=== PATIENT | female | born 1960 | race Two or more races ===

== ENCOUNTER 2023-10-26 14:16 | Outpatient (REF) | payer MEDICARE, MEDICAID, SELFPAY ==
--- NOTE | ~2023-10-26 | XR_ITS ---
EXAMINATION: XR CHEST CLINICAL INFORMATION: Dyspnea. COMPARISON: None available. TECHNIQUE: Frontal and lateral views of the chest were obtained. FINDINGS: The heart, great vessels, pulmonary vasculature and mediastinum are normal. Lung volumes are diminished, with elevated bilateral hemidiaphragms, left greater than right. There is ingested gas within the stomach. No infiltrate, effusion or pneumothorax is seen. There is no acute osseous abnormality. XR/XR chest 2V IMPRESSION: 1. There are diminished lung volumes. 2. No focal infiltrate or congestive heart failure is seen. Electronically signed by: Asim Escalante MD 11/22/2023 02:02 PM EDT
[2023-10-26 15:32] LABS: MANUAL DIFF FLAG NO
[2023-10-26 15:38] LABS: Basophils Absolute Auto 0.1 X10*3/uL (0.0-0.2); Basophils Percent Auto 0.5 % (0-2); Eosinophils Absolute Auto 0.1 X10*3/uL (0.0-0.4); Eosinophils Percent Auto 1.3 % (0-4); Hematocrit 39.9 % (37.0-47.0); Hemoglobin 12.4 g/dl (12.0-16.0); Imm Gran Abs Auto 0.04 X10*3/uL (0.00-0.03); Imm Gran Pct Auto 0.4 % (0.0-0.4); Lymphocytes Absolute Auto 3.5 X10*3/uL (1.2-4.9); Lymphocytes Percent Auto 31.7 % (20-40); Mean Corpuscular HGB Conc 31.1 g/dl (31.0-35.0); Mean Corpuscular Hemoglobin 24.6 pg (27.0-33.0); Mean Platelet Volume 9.7 fL (9.4-12.3); Monocytes Absolute Auto 0.8 X10*3/uL (0.1-1.2); Monocytes Percent Auto 7.4 % (2-11); Neutrophils Absolute Auto 6.5 x10*3/uL (2.0-8.3); Neutrophils Percent Auto 58.7 % (45-73); Platelet Count 302 X10*3/uL (160-400); Red Blood Count 5.05 X10*6/uL (4.20-5.50); Red Cell Distribution Width 15.9 % (11.0-16.0)
[2023-10-26 15:48] LABS: VBG pCO2 50 mmHg; VBG pH 7.44 (7.32-7.43)
[2023-10-26 15:49] LABS: VBG Base Excess 9.3 mmol/L; VBG HCO3 35 mmol/L (22-26); VBG pO2 77 mmHg
[2023-10-26 15:50] LABS: Venous Blood Gas Refer to POC result
[2023-10-26 15:58] LABS: Anion Gap 12 (12-20); Blood Urea Nitrogen 12 mg/dL (9-16); Carbon Dioxide 30 mmol/L (22-29); Chloride 102 mmol/L (96-108); Estimated Glomerular Filt Rate > 60; Glucose Random 163 mg/dL (60-115); Potassium 3.8 mmol/L (3.3-5.1); Sodium 140 mmol/L (135-145)
[2023-10-26 16:26] LABS: Erythrocyte Sedimentation Rate 8 MM/HR (0-20)
[2023-10-29 15:28] LABS: Anti Nuclear Antibody Screen NEGATIVE (NEGATIVE)
[2023-10-30 15:33] LABS: Cyclic Citrullinated Peptide <16 UNITS
== END 2023-10-26 14:17 | disposition home or self-care (01) ==
LOC: HO.LAB 14:16
PROVIDERS: PCP Family Medicine; Visit Provider Hospitalist
DX: R06.02 Shortness of breath (principal); G60.0 Hereditary motor and sensory neuropathy; J98.4 Other disorders of lung; G47.33 Obstructive sleep apnea (adult) (pediatric)
CPT/HCPCS: 36415; 71046; 80048; 82803; 85025; 85652; 86038; 86200; 99202

== ENCOUNTER 2023-10-26 14:16 | Outpatient (AMB) | payer MEDICARE, MEDICAID, SELFPAY ==
[2023-10-26 14:25] VITALS: PULSE 81; O2SAT 95; BMI 40.4
--- NOTE | 2023-10-26 14:25 | A.OFFVIS_ITS ---
Vital Signs 10/26/23 14:25 Height 4 ft 11 in Weight 200 lb BMI 40.4 Pulse 81 Pulse Source Pulse Oximeter Pulse Oximetry (%) 95 Oxygen Delivery Method Room Air Intake Visit Reasons: Sleep apnea Aircraft Riveter Required: No Allergies sulfamethoxazole [From Bactrim] Adverse Reaction (Severe, Verified 10/26/23 14:27) Hives trimethoprim [From Bactrim] Adverse Reaction (Severe, Verified 10/26/23 14:27) Hives HPI Comments Details: The patient is here for pulmonary evaluation. The patient is a 63 year woman with a known history of charcot angie tooth muscular dystrophy in addition to obstructive sleep apnea. The patient had been developing significant daytime drowsiness. She had undergoing a sleep study demonstrating significant sleep apnea back in 2006. she has been placed on BiPAP with O2. The BiPAP therapy has been affecting beneficial for many years. The patient however has been describing worsening shortness of breath while awake. her shortness of breath is worse when she is laying flat. Currently she is wheelchair-bound due to her significant muscular dystrophy. She feels that the last couple years she has noticed further weakness of her upper and lower extremities. Again, she does depend on a wheelchair and now even to eat in for other activities of daily living she needs help of her . She had been evaluated by Neurology but she no longer is followed by Neurology this time. It is important for her to be evaluated and also should be evaluated by occupational therapy as well to help her with her limitations. In the meantime the patient also has worsening respiratory symptoms. Will go ahead and check her pulmonary function studies in addition to her venous blood gas. My suspicion is that with her progressive neuromuscular disease she may be developing further restrictive lung disease and therefore respiratory failure. If the patient does have elevations in her CO2 and significant decrease in therefore vital capacity which I suspect she will be a good candidate ventilator. [facility] Medical History (Updated 10/28/23 @ 21:25 by Go Fournier MD) JAKI treated with BiPAP Chronic restrictive lung disease Charcot Angie Tooth muscular atrophy Dyspnea Social History (Updated 10/26/23 @ 14:31 by SHABNAM Dominguez) Patient Tobacco Use Status: Never used Tobacco Review of Systems Const Reports daytime sleepiness and Reports weakness Eyes Reports no additional complaints ENT Reports nasal congestion Card Denies chest pain, Reports dyspnea and Reports dyspnea on exertion Resp Reports cough, Reports dyspnea, Reports dyspnea on exertion and Denies wheezing GI Reports no additional complaints Musc Reports abnormal gait and Reports muscle weakness Skin/Breast Denies rash Neuro Reports Neuro-related abnormal movements, Reports abnormal gait and Reports weakness Darion/Lymph Reports no additional complaints Aller/Immun Denies wheezing Physical Exam Vital Signs: Last Vital Signs Pulse 81 10/26/23 14:25 Pulse Ox 95 10/26/23 14:25 Oxygen Delivery Method Room Air 10/26/23 14:25 BMI result Body Mass Index 40.4 Const General: comfortable Limitations: wheelchair HEENT Head: Yes normocephalic Neck Neck: Yes supple Chest Chest palpation & inspection: normal inspection of the chest Resp Effort & Inspection: normal respiratory effort Auscultation: no rales, no rhonchi, no wheezes and diminished lung sounds Cardio Heart sounds: S1 normal heart sound present and S2 normal heart sound present GI Palpation (GI): Soft to palpation Skin General skin exam: no rashes or lesions noted Extrem General: No clubbing and No cyanosis Results Reviewed Results Reviewed: personally reviewd sleep study Assessment & Plan Assessment & Plan (1) Dyspnea: Code(s): R06.00 - Dyspnea, unspecified Category: Medical Qualifiers: Dyspnea type: shortness of breath Qualified Code(s): R06.02 - Shortness of breath (2) Charcot Angie Tooth muscular atrophy: Code(s): 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 Category: Medical (3) Chronic restrictive lung disease: Code(s): J98.4 - Other disorders of lung Category: Medical (4) JAKI treated with BiPAP: Code(s): G47.33 - Obstructive sleep apnea (adult) (pediatric) Category: Medical Plan Bloodwork/blood gas continue BIPAP with O2 PFTs CXR continue NIV F/U 6 weeks Orders: Orders Basic Metabolic Panel 10/26/23 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, R06.00 - Dyspnea, unspecified Erythrocyte Sedimentation Rate 10/26/23 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, R06.00 - Dyspnea, unspecified Cyclic Citrullinated Peptide 10/26/23 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, R06.00 - Dyspnea, unspecified XR chest 2V 10/26/23 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, R06.00 - Dyspnea, unspecified PFT pulmonary function test 10/26/23 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, R06.00 - Dyspnea, unspecified Venous Blood Gas 10/26/23 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, R06.00 - Dyspnea, unspecified Complete Blood Count Auto Diff 10/26/23 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, R06.00 - Dyspnea, unspecified RANCHO Reflex Titer and Pattern 10/26/23 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, R06.00 - Dyspnea, unspecified Referrals Neurology Referral 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
== END 2023-10-26 14:55 | disposition home or self-care (01) ==
PROVIDERS: PCP Family Medicine; Visit Provider Hospitalist
DX: G47.33 Obstructive sleep apnea (adult) (pediatric) (principal); J98.4 Other disorders of lung; R06.02 Shortness of breath; G60.0 Hereditary motor and sensory neuropathy
CPT/HCPCS: 99205

== ENCOUNTER 2023-11-30 09:15 | Outpatient (AMB) | payer MEDICARE, MEDICAID, SELFPAY ==
--- NOTE | 2023-11-30 09:18 | MHC.OFFVIS ---
Vital Signs 11/30/23 09:20 Height 4 ft 11 in Weight 190 lb BMI 38.4 BP 124/70 Blood Pressure Location Rt brachial Position Sitting Pulse 78 Pulse Source Pulse Oximeter Pulse Oximetry (%) 96 Oxygen Delivery Method Room Air Intake Visit Reasons: Sleep apnea Faculty Physician Required: No Allergies sulfamethoxazole [From Bactrim] Adverse Reaction (Severe, Verified 11/30/23 09:23) Hives trimethoprim [From Bactrim] Adverse Reaction (Severe, Verified 11/30/23 09:23) Hives HPI Comments Details: The patient is a 63 year woman with a known history of charcot angie tooth muscular dystrophy in addition to obstructive sleep apnea. The patient had been developing significant daytime drowsiness. She had undergoing a sleep study demonstrating significant sleep apnea back in 2006. she has been placed on BiPAP with O2. The BiPAP therapy has been affecting beneficial for many years. The patient however has been describing worsening shortness of breath while awake. her shortness of breath is worse when she is laying flat. Currently she is wheelchair-bound due to her significant muscular dystrophy. She feels that the last couple years she has noticed further weakness of her upper and lower extremities. Again, she does depend on a wheelchair and now even to eat in for other activities of daily living she needs help of her . She had been evaluated by Neurology but she no longer is followed by Neurology this time. It is important for her to be evaluated and also should be evaluated by occupational therapy as well to help her with her limitations. In the meantime the patient also has worsening respiratory symptoms. Will go ahead and check her pulmonary function studies in addition to her venous blood gas. My suspicion is that with her progressive neuromuscular disease she may be developing further restrictive lung disease and therefore respiratory failure. If the patient does have elevations in her CO2 and significant decrease in therefore vital capacity which I suspect she will be a good candidate ventilator. 11/30/2023 the patient is here for a pulmonary follow-up visit. Overall she is doing okay. She does have significant restrictive lung disease due to her Charcot Angie tooth muscular dystrophy. She is currently wheelchair-bound. She has been using the BiPAP at nighttime. We did do a blood gas while on the BiPAP and his CO2 still elevated at 50 mmHg. In addition to that the patient did have pulmonary function studies and had a forced vital capacity of about 30% and has significantly limited inspiratory and expiratory maximum inspiratory pressures. Therefore, the patient does have significant disease with evidence of chronic hypercarbic respiratory failure. At this point will go ahead and switch her BiPAP to a noninvasive ventilator. This will help her with better gas exchange. Could also provide her with a mouthpiece that she can use during the daytime when she has her wheelchair to provide rescue breaths during the day as well. We have been trying to help her getting to a neurologist. The patient had been seen a local neurologist in the past Dr. Plummer, but since he tired. Hopefully we can set her up with [facility] neurology. The patient had been evaluated in [place] as well. Although transportation is an issue. The patient is still having some difficulty sleeping. She has significant pain at nighttime. She will try small dose of gabapentin. She also takes Cymbalta we have to make sure to give her small dose. She can titrate from 100 mg 200 mg.. [facility] Medical History (Updated 12/02/23 @ 21:26 by Go Fournier MD) Chronic hypercapnic respiratory failure JAKI treated with BiPAP Chronic restrictive lung disease Charcot Angie Tooth muscular atrophy Dyspnea Social History (Updated 10/26/23 @ 14:31 by SHABNAM Dominguez) Patient Tobacco Use Status: Never used Tobacco Review of Systems Const Reports daytime sleepiness and Reports weakness Eyes Reports no additional complaints ENT Reports nasal congestion Card Denies chest pain, Reports dyspnea and Reports dyspnea on exertion Resp Reports cough, Reports dyspnea, Reports dyspnea on exertion and Denies wheezing GI Reports no additional complaints Musc Reports abnormal gait and Reports muscle weakness Skin/Breast Denies rash Neuro Reports Neuro-related abnormal movements, Reports abnormal gait and Reports weakness Darion/Lymph Reports no additional complaints Aller/Immun Denies wheezing Physical Exam Vital Signs: Last Vital Signs Pulse 78 11/30/23 09:20 BP 124/70 11/30/23 09:20 Pulse Ox 96 11/30/23 09:20 Oxygen Delivery Method Room Air 11/30/23 09:20 BMI result Body Mass Index 38.4 Const General: comfortable Limitations: wheelchair HEENT Head: Yes normocephalic Neck Neck: Yes supple Chest Chest palpation & inspection: normal inspection of the chest Resp Effort & Inspection: normal respiratory effort Auscultation: no rales, no rhonchi, no wheezes and diminished lung sounds Cardio Heart sounds: S1 normal heart sound present and S2 normal heart sound present GI Palpation (GI): Soft to palpation Skin General skin exam: no rashes or lesions noted Extrem General: No clubbing and No cyanosis Assessment & Plan Assessment & Plan (1) Dyspnea: Code(s): R06.00 - Dyspnea, unspecified Category: Medical Qualifiers: Dyspnea type: shortness of breath Qualified Code(s): R06.02 - Shortness of breath (2) Charcot Angie Tooth muscular atrophy: Code(s): 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 failed BIPAP with O2, elevated PCO2 and FVC 30% EKG start PPI start gabapentin at night [facility] neurology F/U 6 weeks Orders: Orders ECG 12 lead EKG 11/30/23 J44.9 - Chronic obstructive pulmonary disease, unspecified Medications: New gabapentin 200 mg (2 x 100 mg) PO BEDTIME 60 caps 4RF 30 days omeprazole 40 mg PO DAILY 30 caps 6RF Coding Level of Care Code Est Pt Level 5 (23980) Complex EM visit Add On G2211 Diagnoses Shortness of breath R06.02 Dyspnea type: shortness of breath Charcot Angie Tooth muscular atrophy G60.0 Chronic restrictive lung disease J98.4 JAKI treated with BiPAP G47.33 Chronic hypercapnic respiratory failure J96.12 Chest pain, unspecified type R07.9 Chest pain type: unspecified Time Spent (min) 30
[2023-11-30 09:20] VITALS: BP 124/70; PULSE 78; O2SAT 96; BMI 38.4
== END 2023-11-30 09:57 | disposition home or self-care (01) ==
PROVIDERS: PCP Family Medicine; Visit Provider Hospitalist
DX: G47.33 Obstructive sleep apnea (adult) (pediatric) (principal); G60.0 Hereditary motor and sensory neuropathy; J98.4 Other disorders of lung; J96.12 Chronic respiratory failure with hypercapnia; R07.9 Chest pain, unspecified
CPT/HCPCS: 99215; G2211

== ENCOUNTER → 2023-11-30 09:15 | Outpatient (REF) | payer MEDICARE, MEDICAID, SELFPAY ==
--- NOTE | 2023-11-30 10:15 | ECG_ITS ---
Test Reason : COPD Blood Pressure : / mmHG Vent. Rate : 077 BPM Atrial Rate : 077 BPM P-R Int : 148 ms QRS Dur : 074 ms QT Int : 364 ms P-R-T Axes : 021 007 036 degrees QTc Int : 411 ms Normal sinus rhythm Cannot rule out Anterior infarct , age undetermined Abnormal ECG No previous ECGs available Referred By: Go Fournier Electronically Signed By:DELMY KENYON
== END ==
LOC: HO.CARD 09:15
PROVIDERS: PCP Family Medicine; Visit Provider Hospitalist
DX: R06.02 Shortness of breath (principal); J44.9 Chronic obstructive pulmonary disease, unspecified
CPT/HCPCS: 93005; 99212

== ENCOUNTER 2024-06-24 12:58 | Outpatient (REF) | payer MEDICARE, MEDICAID, SELFPAY ==
--- NOTE | ~2024-06-24 | XR_ITS ---
EXAMINATION: XR CHEST CLINICAL INFORMATION: R07.9 - Chest pain, unspecified COMPARISON: October 26, 2023. TECHNIQUE: 2 views of the chest were obtained. FINDINGS: Low lung volume. Elevated left hemidiaphragm, chronic. No consolidation, pleural effusion or pneumothorax. Cardiomediastinal silhouette size is normal. Multilevel thoracolumbar spondylosis. Osteopenia versus osteoporosis. Vascular clips right upper quadrant abdomen. Patient's large body habitus. XR/XR chest 2V IMPRESSION: No acute airspace disease. Stable chest. Electronically signed by: Genaro Ingram MD 06/25/2024 09:11 AM EDT
[2024-06-24 13:48] LABS: MANUAL DIFF FLAG NO
[2024-06-24 13:49] LABS: Venous Blood Gas Refer to POC result
[2024-06-24 13:56] LABS: Basophils Absolute Auto 0.1 X10*3/uL (0.0-0.2); Basophils Percent Auto 0.8 % (0-2); Eosinophils Absolute Auto 0.2 X10*3/uL (0.0-0.4); Eosinophils Percent Auto 1.8 % (0-4); Hematocrit 42.1 % (37.0-47.0); Hemoglobin 12.8 g/dl (12.0-16.0); Imm Gran Abs Auto 0.03 X10*3/uL (0.00-0.03); Imm Gran Pct Auto 0.3 % (0.0-0.4); Lymphocytes Absolute Auto 3.2 X10*3/uL (1.2-4.9); Mean Corpuscular HGB Conc 30.4 g/dl (31.0-35.0); Mean Corpuscular Hemoglobin 24.2 pg (27.0-33.0); Mean Corpuscular Volume 79.6 fL (80.0-98.0); Monocytes Absolute Auto 0.9 X10*3/uL (0.1-1.2); Neutrophils Absolute Auto 6.3 x10*3/uL (2.0-8.3); Neutrophils Percent Auto 59.1 % (45-73); Platelet Count 333 X10*3/uL (160-400); Red Blood Count 5.29 X10*6/uL (4.20-5.50); Red Cell Distribution Width 17.3 % (11.0-16.0); White Blood Count 10.7 X10*3/uL (4.8-10.8)
[2024-06-24 14:37] LABS: Alanine Aminotransferase 13 U/L (0-31); Albumin Level 3.9 g/dL (3.5-5.0); Alkaline Phosphatase 108 U/L (39-117); Anion Gap 7 (12-20); Aspartate Amino Transferase 18 U/L (5-31); Bilirubin Direct 0.2 mg/dL (0.0-0.5); Bilirubin Total 0.5 mg/dL (0.0-1.0); Blood Urea Nitrogen 15 mg/dL (9-16); Calcium 9.2 mg/dL (8.4-10.2); Carbon Dioxide 32 mmol/L (22-29); Chloride 106 mmol/L (96-108); Estimated Glomerular Filt Rate > 60; Glucose Random 157 mg/dL (60-115); Potassium 3.9 mmol/L (3.3-5.1); Sodium 141 mmol/L (135-145); Total Protein 7.4 g/dL (6.5-8.0)
[2024-06-24 14:45] LABS: Erythrocyte Sedimentation Rate 10 MM/HR (0-20)
--- OUTSIDE RECORDS SUMMARY | 2024-06-24 16:04 | XMS_ITS | Clinical Summary ---
Author Organization [address] [place] [address] [place] [phone] Phone Care Team Providers Care Transmission Maintenance Supervisor Name Role Phone Fany Roberto MD Primary [...] Active Problems Problem Noted Date Diagnosed Date Cdxwzkc-Yngku-Vooiq disease 09/18/2013 Overview (02/24/2024): Diagnosed at the [...] 2010 PROCEDURE: HISTORICAL CHOLECYSTECTOMY PARTIAL HYSTERECTOMY PROCEDURE: [place] SUPRACERVICAL ABDL HYSTER W/WO RMVL TUBE OVARY TONSILLECTOMY PROCEDURE: HISTORICAL TONSILLECTOMY OTHER SURGICAL HISTORY PROCEDURE: [place] ANESTHESIA OPEN PROCEDURES LOWER 1/3 FEMUR; COMMENT: fractured, gladis in place COLONOSCOPY 06/20/12 PROCEDURE: HISTORICAL COLONOSCOPY; COMMENT: Dr Huang OTHER SURGICAL HISTORY PROCEDURE: CLASS; COMMENT: X 3 Medical History Medical History Date Comments Osteoporosis 09/18/2013 DX:Osteoporosis Slrrnbk-Mapex-Upjlw disease DX:C mgfzdj-Oyqwn-Sxukr disease Family History Medical History Relation Name [...] PM EDT Office Visit Adult Medicine - [place] [address] [place] [phone] Jacob Davis PA [address] [place] [address] 12/23/2024 2:30 PM EDT Office Visit Bariatric Surgery - [place] [address] [phone] Dorie Schneider MD [address] [address] Health Maintenance Due Date Last Done Comments [...] PM EDT Narrative 10/26/2022 2:58 PM EDT [facility] Diagnostic Imaging Department [address] [place] [address] Patient: ??EUSEBIA AGUILAR ?/Age/Sex: 1960 - 62 - F Unit#: ??[id number] ? Location/Status: ??SPDIMAM/REG CLI ? Mnemonic/Ordering Site: ??DIGSC/SPMAM Ordering Physician: ??FANY ROBERTO MD Elena Screening Digital - 10/26/22 477 Report Status:Signed EXAM: [facility] Screening Digital EXAM DATE AND TIME: 10/26/2022 2:43 PM HISTORY: ??Screening. COMPARISON: ??10/24/21, 09/10/17, 10/08/15 TECHNIQUE: Bilateral digital breast tomosynthesis was performed in the CC and MLO projections. Computer aided detection with [employer] concepts 3D 3.1 was employed. TISSUE DENSITY: b. [...] Dic Date/Time: ??10/26/22 1457 Sign date/Time: ??10/26/22 1455 Procedure Note Mar Ramos MD - 05/01/2023 [facility] Diagnostic Imaging Department [address] [place] [address] Patient: LAURENEUSEBIA.O.B./Age/Sex: 1960 - 62 - F Unit#: [id number] [facility] Ordering Physician: FANY ROBERTO MD Elena Screening Digital - 10/26/22 - 1442 Report Status:Signed EXAM: [facility] Screening Digital EXAM DATE AND TIME: 10/26/2022 2:43 PM HISTORY: Screening. COMPARISON: 10/24/21, 09/10/17, 10/08/15 TECHNIQUE: Bilateral digital breast tomosynthesis was performed in the CCand MLO projections. Computer aided detection with [employer]jh direct marketing concepts 3D 3.1was employed. TISSUE DENSITY: b. There [...] Relevant to Health Maintenance Insurance MEDICAID - [place] MEDICARE Care Teams Transmission Maintenance Supervisor Relationship Specialty Start Date End Date Fany Roberto MD [address] [place] [phone] PCP - General Internal Medicine 08/02/21
== END 2024-06-24 12:59 | disposition home or self-care (01) ==
LOC: HO.XRAY 12:58
PROVIDERS: PCP Family Medicine; Visit Provider Hospitalist
DX: R07.9 Chest pain, unspecified (principal); R06.02 Shortness of breath; G60.0 Hereditary motor and sensory neuropathy; G47.33 Obstructive sleep apnea (adult) (pediatric); Z99.89 Dependence on other enabling machines and devices
CPT/HCPCS: 36415; 71046; 80048; 80076; 85025; 85652; 99212

== ENCOUNTER 2024-06-24 12:58 | Outpatient (AMB) | payer MEDICARE, MEDICAID, SELFPAY ==
[2024-06-24 13:01] VITALS: BP 126/70; PULSE 85; O2SAT 99
--- NOTE | 2024-06-24 13:01 | A.OFFVIS_ITS ---
Vital Signs 06/24/24 13:01 Height 4 ft 11 in BMI Reason not done Patient refused/unable BP 126/70 Blood Pressure Location Rt brachial Position Sitting Pulse 85 Pulse Source Pulse Oximeter Pulse Oximetry (%) 99 Oxygen Delivery Method Room Air Intake Visit Reasons: sleep apnea Allergies sulfamethoxazole [From Bactrim] Adverse Reaction (Severe, Verified 06/24/24 13:05) Hives trimethoprim [From Bactrim] Adverse Reaction (Severe, Verified 06/24/24 13:05) Hives HPI Comments Details: The patient is a 64 year woman with a known history of charcot angie tooth muscular dystrophy in addition to obstructive sleep apnea. The patient had been developing significant daytime drowsiness. She had undergoing a sleep study demonstrating significant sleep apnea back in 2006. she has been placed on BiPAP with O2. The BiPAP therapy has been affecting beneficial for many years. The patient however has been describing worsening shortness of breath while awake. her shortness of breath is worse when she is laying flat. Currently she is wheelchair-bound due to her significant muscular dystrophy. She feels that the last couple years she has noticed further weakness of her upper and lower extremities. Again, she does depend on a wheelchair and now even to eat in for other activities of daily living she needs help of her . She had been evaluated by Neurology but she no longer is followed by Neurology this time. It is important for her to be evaluated and also should be evaluated by occupational therapy as well to help her with her limitations. In the meantime the patient also has worsening respiratory symptoms. Will go ahead and check her pulmonary function studies in addition to her venous blood gas. My suspicion is that with her progressive neuromuscular disease she may be developing further restrictive lung disease and therefore respiratory failure. If the patient does have elevations in her CO2 and significant decrease in therefore vital capacity which I suspect she will be a good candidate ventilator. 11/30/2023 the patient is here for a pulmonary follow-up visit. Overall she is doing okay. She does have significant restrictive lung disease due to her Charcot Angie tooth muscular dystrophy. She is currently wheelchair-bound. She has been using the BiPAP at nighttime. We did do a blood gas while on the BiPAP and his CO2 still elevated at 50 mmHg. In addition to that the patient did have pulmonary function studies and had a forced vital capacity of about 30% and has significantly limited inspiratory and expiratory maximum inspiratory pressures. Therefore, the patient does have significant disease with evidence of chronic hypercarbic respiratory failure. At this point will go ahead and switch her BiPAP to a noninvasive ventilator. This will help her with better gas exchange. Could also provide her with a mouthpiece that she can use during the daytime when she has her wheelchair to provide rescue breaths during the day as well. We have been trying to help her getting to a neurologist. The patient had been seen a local neurologist in the past Dr. Plummer, but since he tired. Hopefully we can set her up with [facility] neurology. The patient had been evaluated in [place] as well. Although transportation is an issue. The patient is still having some difficulty sleeping. She has significant pain at nighttime. She will try small dose of gabapentin. She also takes Cymbalta we have to make sure to give her small dose. She can titrate from 100 mg 200 mg. 06/24/2024 the patient is here for a pulmonary follow-up visit. Overall the patient has been doing fair. She has been complaining of some right-sided chest discomfort primarily on the lower part. Does radiate to the front. She already had her gallbladder taken out. She does have a pleuritic component. He is also tender to the touch. She does get vesicles sometimes but no obvious shingles that she is describing. In addition to that she has been using her ventilator. The ventilator has been affecting beneficial. I did downloaded. She has been using it every night. Her AHI is down to 0.4. The patient is trying to get used to the mask she has significant air leakage. She needs to try fullface mask. She did get 1 and she is going to start using more regularly. In addition to that the patient finally got some records from her neurologist. Therefore put a referral again for to see [facility] Neurology. In addition to that she was having some chest discomfort over the fall and she did have an EKG that was abnormal. Therefore will for for her to Cardiology as well to further evaluate those findings. The patient has been complaining of a weak cough. Difficult for her to expectorate. She is also worried about it because she has a hard time clearing any secretions. She did cough in the office and his extremely weak. She is really not able to mount a significant cough. She needs assistance in therefore will go ahead and order a cough assist device for her to be a clear secretions. In this way she can use it as a chest physical therapy on a daily basis and then increase it or increase the frequency when she gets congested. [facility] Medical History (Updated 06/24/24 @ 13:26 by Go Fournier MD) Abnormal EKG Chronic hypercapnic respiratory failure JAKI treated with BiPAP Chronic restrictive lung disease Charcot Angie Tooth muscular atrophy Dyspnea Social History Patient Tobacco Use Status: Never used Tobacco Review of Systems Const Reports daytime sleepiness and Reports weakness Eyes Reports no additional complaints ENT Reports nasal congestion Card Denies chest pain, Reports dyspnea and Reports dyspnea on exertion Resp Reports cough, Reports dyspnea, Reports dyspnea on exertion and Denies wheezing GI Reports no additional complaints Musc Reports abnormal gait and Reports muscle weakness Skin/Breast Denies rash Neuro Reports Neuro-related abnormal movements, Reports abnormal gait and Reports weakness Darion/Lymph Reports no additional complaints Aller/Immun Denies wheezing Physical Exam Vital Signs: Last Vital Signs Pulse 85 06/24/24 13:01 BP 126/70 06/24/24 13:01 Pulse Ox 99 06/24/24 13:01 Oxygen Delivery Method Room Air 06/24/24 13:01 Const General: comfortable Limitations: wheelchair HEENT Head: Yes normocephalic Neck Neck: Yes supple Chest Chest palpation & inspection: tenderness rib Resp Effort & Inspection: normal respiratory effort Auscultation: no rales, no rhonchi, no wheezes and diminished lung sounds Cardio Heart sounds: S1 normal heart sound present and S2 normal heart sound present GI Palpation (GI): Soft to palpation Skin General skin exam: no rashes or lesions noted Extrem General: No clubbing and No cyanosis Assessment & Plan Assessment & Plan (1) Dyspnea: Code(s): R06.00 - Dyspnea, unspecified Category: Medical Qualifiers: Dyspnea type: shortness of breath Qualified Code(s): R06.02 - Shortness of breath (2) Charcot Angie Tooth muscular atrophy: Code(s): 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 Category: Medical (3) Chronic restrictive lung disease: Code(s): J98.4 - Other disorders of lung Category: Medical (4) JAKI treated with BiPAP: Code(s): G47.33 - Obstructive sleep apnea (adult) (pediatric) Category: Medical (5) Chronic hypercapnic respiratory failure: Code(s): J96.12 - Chronic respiratory failure with hypercapnia Category: Medical (6) Chest pain: Code(s): R07.9 - Chest pain, unspecified Category: Medical Qualifiers: Chest pain type: unspecified Qualified Code(s): R07.9 - Chest pain, unspecified (7) Abnormal EKG: Code(s): R94.31 - Abnormal electrocardiogram [ECG] [EKG] Category: Medical Plan non invasive ventilator, astral, with mouth piece. failed BIPAP with O2, elevated PCO2 and FVC 30%. Needs to use FM PPI gabapentin at night [facility] neurology referral Cardiology referra Needs a cough assist device Bloodwork CXR start Baclofen TID F/U 4 months Orders: Orders Venous Blood Gas Today R07.9 - Chest pain, unspecified Liver Panel Today R07.9 - Chest pain, unspecified Erythrocyte Sedimentation Rate Today R07.9 - Chest pain, unspecified XR chest 2V Today R07.9 - Chest pain, unspecified Complete Blood Count Auto Diff Today R07.9 - Chest pain, unspecified Basic Metabolic Panel Today R07.9 - Chest pain, unspecified Referrals Cardiology Referral R94.31 - Abnormal electrocardiogram [ECG] [EKG] Neurology Referral 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
--- OUTSIDE RECORDS SUMMARY | 2024-06-24 15:09 | XMS_ITS ---
Author Organization [facility] Address [address] [address] Care Team Providers Care Vehicle Body Builder Name Role Phone Marco Jones MD, Sara Primary Care Provider REASON FOR VISIT *Acute Condition Medications Medication SIG (Take, Route, Frequency, Duration) Notes Start Date End Date Status Ciprofloxacin HCl 250 MG 1 tablet Orally every 12 hrs for 5 days 04/13/2024 Active Phenazopyridine HCl 200 MG 1 tablet afte r meals Orally Three times a day for 2 days 04/13/2024 Active Social History Sex Assigned At : Social History Observation Description Sex Assigned At Female Encounters Encounter Location Date Provider Diagnosis [facility] [address] [place] [address] 04/13/2024 Sara Jones Plan Of Treatment Medication Medication Name Sig Start Date Stop Date Notes Ciprofloxacin HCl 250 MG 1 tablet Orally every 12 hrs for 5 days 04/13/2024 Phenazopyridine HCl 200 MG 1 tablet afte r meals Orally Three times a day for 2 days 04/13/2024 Progress Notes * BRIANNE AGUILAROB: 1 (64 yo F)Acc No.[id number]:04/13/2024 Patient:?AGUILAROSWALDOEUSEBIA :1960???Age:64 Y???Sex:Female Address:[address] [place] [id number] * Refills? Start Phenazopyridine HCl Tablet, 200 MG, Orally, 6, 1 tablet after meals, Three times a day, 2 days, Refills=0 Start Ciprofloxacin HCl Tablet, 250 MG, Orally, 10 Tablet, 1 tablet, every 12 hrs, 5 days, Refills=0 * true * Date:? Generated for Annie bateman/Ade/Adan on:?06/24/2024 03:09 PM EDT
--- OUTSIDE RECORDS SUMMARY | 2024-06-24 15:09 | XMS_ITS ---
Author Organization [facility] Address [address] [place] [address] Care Team Providers Care Curriculum Counselor Name Role Phone Marco Jones MD, Sara Primary Care Provider [phone] REASON FOR VISIT fasting labs Social History Sex Assigned At : Social History Observation Description Sex Assigned At Female Encounters Encounter Location Date Provider Diagnosis [place] [address] [place] [address] 05/16/2024 Sara Jones Plan Of Treatment No Information Progress Notes * BRIANNE AGUILAROB: (64 yo F)Acc No.[id number]:05/16/2024 Progress Notes Patient:EUSEBIA ALMANZAR Provider:?Sara Manzo MD :1960???Age:64 Y???Sex:Female D ate:05/16/2024 Address:[address] [place], [place] [phone] Structured Data:General cons ent obtained : Written; Date obtained: : 03/18/2024 Subjective: * Chief Complaints: * ???1. Fasting labs. * Medical History:? Objective: * Vitals:? Assessment: Plan: * Treatment: * * Electronic signature of Muna Jones MD, MD on 06/24/2024 at 03:09 PM EDT Sign off status: Pending * Provider:?Sara Manzo MD Date:? Generated for Annie bateman/Ade/Adan on:?06/24/2024 03:09 PM EDT
--- OUTSIDE RECORDS SUMMARY | 2024-06-24 15:10 | XMS_ITS ---
Author Organization [facility] Address [address] [place] [address] Care Team Providers Care Road Machinery Inspector Name Role Phone Marco Jones MD, Sara Primary Care Provider REASON FOR VISIT *Evaluation and Management of Chronic Medical Conditions Social History Sex Assigned At : Social History Observation Description Sex Assigned At Female Encounters Encounter Location Date Provider Diagnosis [place] [address] [place] [address] 05/23/2024 Sara Jones Plan Of Treatment No Information Progress Notes * BRIANNE AGUILAROB: (64 yo F)Acc No.[id number]:05/23/2024 Patient:EUSEBIA ALMANZAR Provider:?Sara Manzo MD :1960???Age:64 Y???Sex:Female D ate:05/23/2024 Address:[address] [place], [place] [id number] Structured Data:General cons ent obtained : Written; Date obtained: : 03/18/2024 Subjective: * Chief Complaints: * ???1. *Evaluation and Manage ment of Chronic Medical Conditions. * Medical History:? Objective: * Vitals:? Assessment: Plan: * Treatment: * * Electronic signature of Muna Jones MD, MD on 06/24/2024 at 03:09 PM EDT Sign off status: Pending * Provider:?Sara Manzo MD Date:? Generated for Annie bateman/Ade/Masonitting on:?06/24/2024 03:09 PM EDT
--- OUTSIDE RECORDS SUMMARY | 2024-06-24 15:10 | XMS_ITS ---
Author Organization [facility] Address [address] [place] [address] Care Team Providers Care Data Communications Software Consultant Name Role Phone Edwin Hines Primary Care Provider Rose Aly [phone] REASON FOR VISIT Medical records request--ok Encounters Encounter Location Date Provider Diagnosis [facility] [address] [place] [address] 12/12/2023 Rose Correia PLAN OF TREATMENT No Information
--- OUTSIDE RECORDS SUMMARY | 2024-06-24 15:10 | XMS_ITS | Patient Health Record ---
Author Organization [facility] Address [address] [place] [address] Care Team Providers Care Seed Analysis Laboratory Assistant Name Role Phone Edwin Hines Primary Care Provider Rose Aly [phone] ALLERGIES Allergen (clinical drug ingredient) Drug/Non Drug Allergy documented on EMR Reaction Allergy Type Onset Date Status sulfamethoxazole / trimethoprim Bactrim Itchiness Drug Allergy Active morphine Morphine Unknown Drug Allergy Active REASON FOR REFERRAL No Information MEDICATIONS Medication SIG (Take, Route, Frequency, Duration) Notes Start Date End Date Status Tylenol Extra Strength 500 MG 1 tablet as needed Orally every 6 hrs Active Pravastatin Sodium 20 MG 1 tablet Orally Once a day for 30 day(s) Active DULoxetine HCl 30 MG 1 capsule Orally On ce a day for 90 days 06/02/2022 Active SOCIAL HISTORY Tobacco Use: Social History Observation Description Date Details (start date - stop date) Never Smoker NA - NA Sex Assigned At : Social History Observation Description Sex Assigned At Unknown Alcohol Screen Question Answer Notes Points 0 Interpretation Negative Tobacco use other than smoking: Question Answer Notes Are you an other tobacco user? No Tobacco Use Question Answer Notes Tobacco status: Non-smoker Alcohol Question Answer Notes Do you consume alcoholic beverages? 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 Problem Paresthesia of skin (R20.2) Active confirmed Paresthesia (finding) (31737004) Encounters Encounter Location Date Provider Diagnosis [facility] [address] [place] [address] 12/12/2023 Rose Correia PLAN OF TREATMENT Future Test Test Name Order Date EMG/NCS upper extremities 01/16/2022 EMG/NCS lower extremities 01/16/2022 Insurance Providers Payer Name Payer Address Payer Phone Subscriber Number Group Number Insured Name Patient Relationship to Insured Coverage Start Date Coverage End Date [employer] [place] [address] [address] [place] [address] [id number] Monse Medina Self - patient is the insured MEDICAL (GENERAL) HISTORY Medical History History ICD Code Qyiagoy-Yrxnh-Fdfjl disorder Hyperlipidemia Sleep apnea Surgical History Surgery Date(Month/Year) Tonsillectomy Cholecystectomy Total hysterectomy Left femur repair section x2 Kidney Stone 05/2022 Hospitalization History Reason Date(Month/Year) Patient was hospitalized for all the major surgical procedures mentioned in surgical history
--- OUTSIDE RECORDS SUMMARY | 2024-06-24 15:10 | XMS_ITS | Patient Health Record ---
Author Organization [facility] Address [address] [place] [address] Care Team Providers [employer] Miner Name Role Phone Marco Jones MD, Sara Primary Care Provider Edwin Hines MD Unavailable Yuliana Fox Unavailable [phone] Tyrell Morrell Unavailable Allergies Allergen (clinical drug ingredient) Drug/Non Drug Allergy documented on EMR Reaction Allergy Type Onset Date Status sulfamethoxazole / trimethoprim Bactrim Unknown Drug Allergy Active morphine Morphine Unknown Drug Allergy Active Results Component Value Reference Range Notes Urinalysis (UA), Complete Wi th Microscopic Examination With Reflex to Urine Culture, Routine Reviewed date:04/15/2024 02:48:59 PM Interpretation: Abnormal Performing Lab:[facility], [facility] [place], [place] [id number], Phone - [phone], Director - Reina Notes/Report: Specific [place] 1.018 1.005-1.030 pH >=9.0 5.0-7.5 Urine-Color Yellow Yellow Appearance Clear Clear WBC Esterase Trace Negative Protein 2+ Negative/Trace Glucose Trace Negative Ketones Negative Negative Occult Blood Trace Negative Bilirubin Negative Negative Urobilinogen,Semi-Qn 1.0 0.2-1.0 mg/dL Nitrite, Urine Negative Negative Microscopic Examination See below: Micr oscopic was indicated and was performed. WBC None seen 0 - 5 /hpf RBC None seen 0 - 2 /hpf Epithelial Cells (non renal) None seen 0 - 10 /hpf Casts None seen None seen /lpf Crystals Present N/A Crystal Type Ammonium Biurate N/A Mucus Threads Present Not Estab. Bacteria Few None seen/Few Urine Culture, Routine Final report Result 1 Proteus mirabilis Cefazolin <=4 ug/mL Cefazolin with an KATIE <=16 predicts susceptibility to the oral agents cefaclor, cefdinir, cefpodoxime, cefprozil, cefuroxime, cephalexin, and loracarbef when used for therapy of uncomplicated urinary tract infections due to E. coli, Klebsiella pneumoniae, and Proteus mirabilis. Greater than 100,000 colony forming units per mL Urinalysis, Auto, without mi croscopy (Dip Stick) *IN HOUSE* Reviewed date:03/19/2024 09:32:10 PM Interpretation:Abnormal Performing Lab: Notes/Report: Abnormal Urine-Color cloudy Glucose neg Bilirubin neg Ketones neg Specific [place] 1.015 Blood 3+ pH 6.0 Protein 1+ Urobilinogen +- Nitrite neg Leukocytes 1+ 70Leu/uL Cardiovascular Risk Assessme nt Reviewed date:03/21/2024 03:33:44 PM Interpretation: Performing Lab:[facility], [address] [place] [id number], Phone - [phone], Director - Reina Notes/Report: Interpretation Note Supplemental report is available. PDF . Urinalysis, Auto, without mi croscopy (Dip Stick) *IN HOUSE* Reviewed date:06/29/2023 12:14:17 PM Interpretation: Stable Performing Lab: Notes/Report: Stable Urine-Color yellow Glucose neg Bilirubin neg Ketones neg Specific [place] 1.030 Blood 3+ pH 6.0 Protein 2+ Urobilinogen + Nitrite neg Leukocytes 1+ 70 Bradford/uL Urine Culture, Routine [id number] Reviewed date:07/09/2023 09:47:07 AM Interpretation: Performing Lab:[facility], [address] [place] [id number], Phone - [phone], Director - Reina Notes/Report: Urine Culture, Routine Final report Vitamin D, 25-Hydroxy Reviewed date:03/21/2024 03:33:44 PM Interpretation:Abnormal Performing Lab:[facility], [address] [place], [place] [id number], Phone - [phone], Director - Araseli Notes/Report: Vitamin D, 25-Hydroxy 23.5 30.0-100.0 ng/mL Vitamin D deficiency has been defined by the [place] of Medicine and an Endocrine Society practice guideline as a level of serum 25-OH vitamin D less than 20 ng/mL (1,2). The Endocrine Society went on to further define vitamin D insufficiency as a level between 21 and 29 ng/mL (2). 1. IOM ([place] of Medicine). 2010. Dietary reference intakes for calcium and D. [place]: The National Academies Press. 2. Uriel MF, Lenka PIEDRA, Faheem ROY, et al. Evaluation, treatment, and prevention of vitamin D deficiency: an Endocrine Society clinical practice guideline. JCEM. 2010; 96(7):1911-30. Albumin/Creatinine Ratio, Random Urine 577013 and 6517 Reviewed date:03/21/2024 03:33:44 PM Interpretation:Abnormal Performing Lab:[facility], [address] [place], [place] [id number], Phone - [phone], Director - Araseli Notes/Report: Creatinine, Urine 27.2 Not Estab. mg/dL Albumin, Urine 118.1 Not Estab. ug/mL Alb/Creat Ratio 434 0-29 mg/g creat Normal: 0 - 29 Moderately increased: 30 - 300 Severely increased: >300 CBC (INCLUDES DIFF/PLT) Reviewed date:03/21/2024 05:49:14 PM Interpretation:Abnormal Performing Lab:[facility], [facility] [place], [place] [id number], Phone - [phone], Director - Reina Notes/Report: WBC 13.4 3.4-10.8 x10E3/uL RBC 5.28 3.77-5.28 x10E6/uL Hemoglobin 12.3 11.1-15.9 g/dL Hematocrit 41.2 34.0-46.6 % MCV 78 79-97 fL MCH 23.3 26.6-33.0 pg MCHC 29.9 31.5-35.7 g/dL RDW 14.9 11.7-15.4 % Platelets 392 150-450 x10E3/uL Neutrophils 66 Not Estab. % Lymphs 25 Not Estab. % Monocytes 7 Not Estab. % Eos 2 Not Estab. % Basos 0 Not Estab. % Neutrophils (Absolute) 8.9 1.4-7.0 x10E3/uL Lymphs (Absolute) 3.3 0.7-3.1 x10E3/uL Monocytes(Absolute) 0.9 0.1-0.9 x10E3/uL Eos (Absolute) 0.2 0.0-0.4 x10E3/uL Baso (Absolute) 0.1 0.0-0.2 x10E3/uL Immature Granulocytes 0 Not Estab. % Immature Grans (Abs) 0.0 0.0-0.1 x10E3/uL HEMOGLOBIN A1c Reviewed date:03/21/2024 03:33:44 PM Interpretation:Stable Performing Lab:[facility], [address] [place] [id number], Phone - [phone], Director - Araslei Notes/Report: Hemoglobin A1c 6.1 4.8-5.6 % . Prediabetes: 5.7 - 6.4 Diabetes: >6.4 Glycemic control for adults with diabetes: <7.0 Hepatitis C screening Ab wit h reflex to Quant PCR ([id number]) Reviewed date:03/21/2024 03:33:44 PM Interpretation:Negative Performing Lab:[facility] [address] [id number], Phone - [phone], Director - Reina Notes/Report: HCV Ab Non Reactive Non Reactive Comp. Metabolic Panel (14) ( CMP) Reviewed date:03/21/2024 03:33:44 PM Interpretation:Stable Performing Lab:[facility] [address] [id number], Phone - [phone], Director - Reina Notes/Report: Glucose 164 70-99 mg/dL BUN 14 8-27 mg/dL Verified by r epeat analysis Creatinine 0.25 0.57-1.00 mg/dL Verified b y repeat analysis eGFR 124 >59 mL/min/1.73 BUN/Creatinine Ratio 56 12-28 Sodium 141 134-144 mmol/L Potassium 4.1 3.5-5.2 mmol/L Chloride 99 96-106 mmol/L Carbon Dioxide, Total 23 20-29 mmol/L Calcium 9.8 8.7-10.3 mg/dL Protein, Total 7.4 6.0-8.5 g/dL Albumin 4.2 3.9-4.9 g/dL Globulin, Total 3.2 1.5-4.5 g/dL Bilirubin, Total 0.4 0.0-1.2 mg/dL Alkaline Phosphatase 120 44-121 IU/L AST (SGOT) 14 0-40 IU/L ALT (SGPT) 13 0-32 IU/L Lipid Panel With LDL/HDL Rat io Reviewed date:03/21/2024 05:48:54 PM Interpretation:Abnormal Performing Lab:[facility], [address] [facility], [place], [place] [id number], Phone - [phone], Director - Araseli Notes/Report: Cholesterol, Total 278 100-199 mg/dL Triglycerides 122 0-149 mg/dL HDL Cholesterol 59 >39 mg/dL VLDL Cholesterol Elmer 22 5-40 mg/dL LDL Chol Calc (NIH) 197 0-99 mg/dL LDL/HDL Ratio 3.3 0.0-3.2 ratio LDL/HDL Ratio Men Women 1/2 Avg.Risk 1.0 1.5 Avg.Risk 3.6 3.2 2X Avg.Risk 6.2 5.0 3X Avg.Risk 8.0 6.1 TSH+Free T4 Reviewed date:03/21/2024 03:33:44 PM Interpretation:Normal Performing Lab:[facility] [address] [id number], Phone - [phone], Director - Reina Notes/Report: TSH 1.270 0.450-4.500 uIU/mL T4,Free(Direct) 1.17 0.82-1.77 ng/dL Vitamin B12 and Folate Reviewed date:03/21/2024 03:33:44 PM Interpretation:Normal Performing Lab:[facility] [place] [address] [place], [place] [id number], Phone - [phone], - Reina Notes/Report: Vitamin B12 985 945-6435 pg/mL Folate (Folic Acid), Serum 5.0 >3.0 ng/mL A serum folate concentration of less than 3.1 ng/mL is considered to represent clinical deficiency. Written Authorization Reviewed date:04/15/2024 02:48:59 PM Interpretation: Abnormal Performing Lab:[facility], [facility] [place], [place] [id number], Phone - [phone], Director - Reina Notes/Report: Reason For Referral No Information Medications Medication SIG (Take, Route, Frequency, Duration) Notes Start Date End Date Status DULoxetine HCl 30 MG 1 capsule Orally Once a day pain Active Erythromycin 5 MG/GM 1 application into the lower eyelid of affected eye Ophthalmic Four times a day for 7 days 04/11/2024 Active Oxygen via nasal cannula Oxygen 2 LITERS Nasal Cannula Daily at bedtime JAKI Active Amoxicillin 500 MG 1 capsule Orally every 8 hrs for 5 day(s) 03/18/2024 Not-Taking Vitamin D 25 MCG (1000 UT) 1 tablet Orally Once a day OTC Active Probiotic 250 MG as directed Orally OTC Active Pravastatin Sodium 20 MG 1 tablet Orally Once a day cholesterol Active Tylenol 8 Hour Arthritis Pain 650 MG 1 tablets as needed Orally every 12hrs for 14 days pain 01/05/2022 Active Rosuvastatin Calcium 5 MG 1 tablet Orally twice a week for 90 days at bedtime 04/10/2024 Active Ciprofloxacin HCl 250 MG 1 tablet Orally every 12 hrs for 5 days 04/13/2024 Active Phenazopyridine HCl 200 MG 1 tablet after meals Orally Three times a day for 2 days 04/13/2024 Active Social History Tobacco Use: Social History Observation Description Date Details (start date - stop date) Never Smoker NA - NA Sex Assigned At : Social History Observation Description Sex Assigned At Female Alcohol Screen Question Answer Notes Did you have a drink containing alcohol in the p ast year? No Points 0 Interpretation Negative Sexual History Question Answer Notes Had sex in the past 12 months (vaginal, oral, or anal)? No Have you ever had a Sexually transmitted disease ? No AUDIT-C (Standard) Question Answer Notes Did you have a drink containing alcohol in the p ast year? No Points 0 Interpretation Negative Tobacco Control (Standard) Question Answer Notes Tobacco use: Nonsmoker Problems Problem Type SNOMED Code ICD Code Onset Dates Problem Status W/U Status Risk Notes Problem 85212673 Vitamin D deficiency (E55.9) Active confirmed Problem 657616936 Morbid obesity (E66.01) Active confirmed Problem Leukocytosis (103577325) Leukocytosis (D72.829) Inactive confirmed Problem 718211359 Dyslipidemia (E78.5) Active confirmed Problem 70259929 Mild major depression (F32.0) Active confirmed Problem 39782192 Chronic obstructive pulmonary disease, unspecified COPD type (J44.9) Active confirmed Problem 486607588 Vjysixo-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) Active confirmed Problem 215399931 Severe major depression (F32.2) Inactive confirmed Problem 472264562 Wheelchair confinement (Z99.3) Active confirmed Problem 875624857 Leukocytosis, unspecified type (D72.829) Active confirmed Problem 636027280 Chronic hypoxic respiratory failure (J96.11) Active confirmed Vital Signs Heart Rate 75 /min 04/11/2024 Howard Rider 04/11/2024 01:52:40 PM EST > Temperature 97.6 degrees Fahrenheit 04/11/2024 Sandra Perez 04/11/2024 01:52:40 PM EST > Respiratory Rate 16 /min 04/11/2024 Yariel Rider 04/11/2024 01:52:40 PM EST > Oximetry 98 % 04/11/2024 Howard Rider 04/11/2024 01:52:40 PM EST > Blood pressure diastolic 67 mm Hg 04/11/2024 Sandra Velázquez 04/11/2024 01:52:40 PM EST > Height 59 inches 04/11/2024 Howard Rider 04/11/2024 01:52:40 PM EST > Blood pressure systolic 112 mm Hg 04/11/2024 Sandra Perez 04/11/2024 01:52:40 PM EST > Weight 198 lbs 03/18/2024 Howard Rider 03/18/2024 01:25:56 PM EST > BMI 39.99 kg/m2 03/18/2024 Howard Rider 03/18/2024 01:25:56 PM EST > Encounters Encounter [facility] Date [facility] [place] [address] [place] [address] 06/29/2023 Edwin Hines Recurrent UTI N39.0 [facility] [address] [place] [address] 12/11/[address] [facility] [address] [place] [address] 03/20/2024 Sara Jones [facility] [address] [place] [address] 04/07/2024 Sara Jones [facility] [address] [place] [address] 04/13/[address] [facility] [address] [place] [address] 08/02/2023 Edwin Donny [facility] [address] [facility] [address] [place] [address] 03/18/[address] [facility] [address] [place] [address] 03/18/2024 Sara Jones Mqznakd-Mjkxv-Cmhfc disease G60.0 ; Encounter for subsequent annual wellness visit (AWV) in Medicare patient Z00.00 ; Urinary tract infection without hematuria, site unspecified N39.0 ; Chronic obstructive pulmonary disease, unspecified COPD type J44.9 ; Dyslipidemia E78.5 ; Wheelchair confinement Z99.3 ; Obstructive sleep apnea (adult) (pediatric) G47.33 ; Mild major depression F32.0 ; Chronic hypoxic respiratory failure J96.11 ; Morbid obesity E66.01 ; Advance care planning Z71.89 and Vaccination declined Z28.21 [facility] [address] [place] [address] 04/04/2024 Sara Jones Nntgbqd-Lqawr-Wwdrc disease G60.0 ; Dyslipidemia E78.5 ; Wheelchair confinement Z99.3 ; Chronic obstructive pulmonary disease, unspecified COPD type J44.9 ; Morbid obesity E66.01 ; Chronic hypoxic respiratory failure J96.11 ; Mild major depression F32.0 ; Microcytosis R71.8 ; Leukocytosis, unspecified type D72.829 ; Prediabetes R73.03 ; Vitamin D deficiency E55.9 ; Elevated blood pressure reading without diagnosis of hypertension R03.0 and Other proteinuria R80.[address] [facility] [address] [place] [address] 04/11/2024 Sara Jones Chalazion of right lower eyelid H00.12 Assessments Encounter Date Diagnosis (ICD Code) Assessment Notes Treatment Notes Treatment Clinical Notes 06/29/2023 Recurrent UTI (ICD-10 - N39.0) 03/18/2024 Pbafhji-Gaurx-Zrr th disease (ICD-10 - G60.0) New to sd - chronic neurological deficits - decreased mobility, chronic - wheelchair dependent Will eval labs - cont fall precautions 04/04/2024 Muecsgw-Zqnyp-Czh th disease (ICD-10 - G60.0) Stable. Congenital condition, chornic atrophic changes in LE and weakness -pt is wheelchair dependent. Pt denies h/o falls recently. Will continue ambulation precuations. Monitor 04/04/2024 Dyslipidemia (ICD-10 - E78.5) Uncontrolled Will discontinue Pravastatin Start Crestor Will re eval labs prior next visit Education has been provided to the patient in terms of life style modifications- low intake of saturated fats - avoid red meat and fried food. Increase veggies and fruits intake- change dairy from whole to 1% or low fat avoid cheese. increase physical activity level- walking daily for 20-30 m - 04/11/2024 Chalazion of right lower eyelid (ICD-10 - H00.12) New to me Tender erythematous lesion in the RT inferior eyelid. No erythema in conjucntiva, free EOM No pain on eye movement Recommended cont warm compresses - massage, cool eye lubricant Start Erythromycin ointment q6 h x 7 days She is recommended to f/u with any worsening of this condition or development of new symptoms like eye edema redness or pain changes in vision She verbalized understanding 03/18/2024 Encounter for subsequent annual wellness visit (AWV) in Medicare patient (ICD-10 - Z00.00) Well Visit, under 65: Care Instructions material was printed I discussed importance of a healthy and balanced diet, its impact on general health. discussed importance of regular fitness and aerobic exercise program, its impact on general health All, medications reviewed with patient , make sure see passenger attendant annually. Needs check for Glaucoma, cataracts macular degeneration Physical exam completed, plan of care established, all questions are answered. 04/04/2024 Wheelchair confinement (ICD-10 - Z99.3) Stable. Pt with Charcot Angie Tooth Disease, muscle atrophy and LE weakness. Continue fall precautions Monitor 03/18/2024 Urinary tract infection without hematuria, site unspecified (ICD-10 - N39.0) New to sd - urine diptick + LE Will start antibiotics empirically - f/u cultures Pt to call w worsening symptoms 03/18/2024 Chronic obstructive pulmonary disease, unspecified COPD type (ICD-10 - J44.9) New to sd - exam intact - home oxygen 2 litters at bedtime for JAKI COPD No respiratory symptoms - no using inhalers Exam intact Monitor 04/04/2024 Chronic obstructive pulmonary disease, unspecified COPD type (ICD-10 - J44.9) Stable - no acute respiratory symptoms. On use of noturnal oxygen by pulmonary. Cont inhalers. Exam intact. Monitor 04/04/2024 Morbid obesity (ICD-10 - E66.01) Stable, BMI 39.9 wit h COPD JAKI HLD. Life style modifications- low caloric diet to reduce weight discussed. 03/18/2024 Dyslipidemia (ICD-10 - E78.5) Education has been provided to the patient in terms of life style modifications- low intake of saturated fats - avoid red meat and fried food. Increase veggies and fruits intake- change dairy from whole to 1% or low fat avoid cheese. New to sd - will continue current management and will f/u labs results for further recommendations 03/18/2024 Wheelchair confinement (ICD-10 - Z99.3) New to sd - chronic neurological deficits - decreased mobility, chronic - wheelchair dependent Will eval labs - cont fall precautions 04/04/2024 Chronic hypoxic respiratory failure (ICD-10 - J96.11) Stable. Patient on chronic use of nocturnal oxygen associated with diagnosis of COPD. This is coordinated by pulmonary. Will continue to monitor. 04/04/2024 Mild major depression (ICD-10 - F32.0) Stable. No associate d symptoms at this time. No suicidal ideation. Will continue current management, and patient advised to seek medical attention with any worsening of this condition 03/18/2024 Obstructive sleep apnea (adult) (pediatric) (ICD-10 - G47.33) New to me - exam intact - home oxygen 2 litters at bedtime for JAKI COPD No respiratory symptoms - no using inhalers Exam intact Monitor 03/18/2024 Mild major depression (ICD-10 - F32.0) Stable- no SI cont current management. Report development of symptoms or changes in this condition. Monitor 04/04/2024 Microcytosis (ICD-10 - R71.8) New to sd. Will evaluate hemoglobinopathy profile. 04/04/2024 Leukocytosis, unspecified type (ICD-10 - D72.829) New to sd. No associated symptoms. Will reevaluate labs. 03/18/2024 Chronic hypoxic respiratory failure (ICD-10 - J96.11) New to sd. Patient currently is off oxygen at bedtime 2 L. No respiratory distress at this time. As per patient managing with pulmonary in a different state where she spent some time of the year.No respiratory symptoms at this time. 03/18/2024 Morbid obesity (ICD-10 - E66.01) New to sd BMI 39 with associated diagnosis JAKI Life style modifications - low caloric diet recommended and tolerated exercise 04/04/2024 Prediabetes (ICD-10 - R73.03) Stable- Life style modifications recommended. Dietary modifications recommended. Education provided to the patient in terms of diet and physical activity level. Recommended plate method of diet which consist in decreasing the carbohydrates to only quarter of the plate to reduce carbohydrates intake to 25% of diet- ideally whole grains, follow up a low caloric diet 4873-6437 kcal/24h. Increase your intake of nutrient-dense foods, such as fruits, vegetables, whole grains, low-fat dairy and protein, and healthy fats/oils, Reduce your intake of sodium, fats, added sugars, refined grains, and alcohol. Increase physical activity level to tolerated level 04/04/2024 Vitamin D deficiency (ICD-10 - E55.9) Stable cont supplementation as indicated. Monitor 03/18/2024 Advance care planning (ICD-10 - Z71.89) Today in clinic, advanced directives were reviewed and the five wishes form was given to be filled out with instructions to give us a copy once completed. 04/04/2024 Elevated blood pressure reading without diagnosis of hypertension (ICD-10 - R03.0) New to sd. No symptoms. Home BP monitoring recommended. Discussed 2 gram sodium diet, weight loss and exercise as tolerated like walking for 20 minutes 3-4 times per week. Also follow a low carbohydrate diet, avoid saturated fats. Start blood pressure monitoring at home and keep a daily diary log. Goal BP readings >100/60 less than 140/90 and call us with any blood pressure reading out of the range. 03/18/2024 Vaccination declined (ICD-10 - Z28.21) Patient declined age-appropriate vaccinations. Education provided. 04/04/2024 Other proteinuria (ICD-10 - R80.8) New to sd - will monitor blood pressure readings. No DM diagnosis. Avoid NSAIDS Monitor 03/18/2024 Other I have reviewed and updated the HPI, Current Medications, PFSH, ROS, and Preventive Medicine Screening done by ancillary staff. Patient was given a personalized prevention plan. I have reviewed and updated the HPI, Current Medications, PFSH, ROS and Preventive Medicine Screening Schedules done by my ancillary staff. 04/04/2024 Other I have reviewed and updated the HPI, Current Medications, PFSH, ROS and Preventive Medicine Screening Schedules done by my ancillary staff. 04/11/2024 Other I have reviewed and updated the HPI, Current Medications, PFSH, ROS and Preventive Medicine Screening Schedules done by my ancillary staff. Plan Of Treatment Pending Test Test Name Order Date Dexa Scan 11/17/2021 Echocardiogram 2D with Doppler *IN HOUSE * 04/04/2024 Vitamin B12 and Folate 01/05/2022 Vitamin D, 25-Hydroxy 01/05/2022 Lipid Panel 01/05/2022 Urinalysis (UA), Complete Wi th Microscopic Examination With Reflex to Urine Culture, Comprehensive 01/05/2022 Comp. Metabolic Panel (14) (CMP) 022 Hepatitis C screening Ab with reflex to Quant PCR ([id number]) 01/05/2022 HEMOGLOBIN A1c 01/05/2022 CBC (INCLUDES DIFF/PLT) 01/05/2022 Albumin/Creatinine Ratio, Random Urine [id number] and 6517 01/05/2022 TSH reflex to T4 01/05/2022 Future Test Test Name Order Date Lipid Panel 05/03/2022 Comp. Metabolic Panel (14) (CMP) 023 CBC (INCLUDES DIFF/PLT) 05/03/2022 Albumin/Creatinine Ratio, Random Urine [id number] and 6517 05/03/2022 Iron and TIBC 04/04/2024 Ferritin, Serum 04/04/2024 Hemoglobinopathy Profile With Reflex to a-Thalassemia 04/04/2024 CBC (INCLUDES DIFF/PLT) 04/04/2024 Albumin/Creatinine Ratio, Random Urine [id number] and [id number] 04/04/2024 Insurance Providers Payer Name Payer Address Payer Phone Subscriber Number Group Number Insured Name Patient Relationship to Insured Coverage Start Date Coverage End Date [place] M[place]. [address] [place] [address] [id number] EUSEBIA AGUILAR Self - patient is the insured 4 Medical (General) History Medical History History ICD Code hyperlipidemia Left fracture Dpnoktj-Jnzdw-Mqvjj disease JAKI Surgical History Surgery Date(Month/Year) Cholecystectomy 2016 2 C-Sections Total Hysterectomy Tonsilectomy ORIF left femur 2004 Hospitalization History Reason Date(Month/Year) [facility] - [facility] - Broken left femur 0 8
--- OUTSIDE RECORDS SUMMARY | 2024-06-24 15:10 | XMS_ITS | Clinical Summary ---
Author Organization [address] [place] [address] [place] [phone] Phone Care Team Providers Care Charter Boat Operator Name Role Phone Fany Roberto MD Primary Care Provider Allergies Active Allergy Reactions Criticality Noted Date Comments Alendronic Acid 07/19/2015 breathing distress Sulfamethoxazole-Trimethoprim Hives 2013 Medications ketoconazole (NIZORAL) 2 % shampooIndicatio ns:Psoriasis, unspecified APPLY TO HAIR DAILY. 120 mL 5 4 Active Additional Information Patient taking differently: Topical Daily, TO HAIR, Reported on 02/24/2024 gabapentin (NEURONTIN) 100 mg capsule HISTORIC 4 Active hydrOXYzine HCL (ATARAX) 10 mg tablet Take 0.5-2 tablets (5-20 mg total) by mouth 3 (three) times a day if needed for itching. 3 Active omeprazole (PriLOSEC) [address] capsule HISTORIC 4 Active UNABLE TO FIND Inhale by mouth. Med Name: CPAP. Bipap nasal pillows, [employer] Active nystatin (MYCOSTATIN) cream USE THIN LAYER TO AFFECTED AREA TWICE DAILY 15 g 3 4 Active DULoxetine (CYMBALTA) [address] capsule TAKE 1 CAPSULE BY MOUTH EVERY DAY 90 capsule 1 4 Active triamcinolone (KENALOG) 0.1 % cream APPLY 1 DROP TOPICALLY 2 TIMES DAILY. 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 Hyperlipidemia 09/18/2013 Obstructive sleep apnea 09/18/2013 Overview (02/24/2024): Uses oxygen and Bipap at night Follows with Dr bennett Osteoporosis 09/18/2013 Overview (02/24/2024): Refused medications Immunizations Name Administration Dates Next Due Influenza Quadravalent, MDCK , 0.5ml, preservative free (Flucelvax) 6mo and older 12/03/2023 Influenza trivalent, 0.5mL, preservative free (Fluarix; FluLaval; Fluzone) ages 6mo and older (Afluria) 3 years and older 12/26/2022 RSV, bivalent, protein subun it RSVpreF, 0.5mL, Preservative Free (Arexvy) 60yo and older 12/11/2023 Tdap Tetanus diptheria acell ular pertussis (Boostrix; Adacel) 7yo and older 07/07/2014 Surgical History Surgery Date Site/Laterality Comments CHOLECYSTECTOMY 2010 PROCEDURE: HISTORICAL CHOLECYSTECTOMY PARTIAL HYSTERECTOMY PROCEDURE: [place] SUPRACERVICAL ABDL HYSTER W/WO RMVL TUBE OVARY TONSILLECTOMY PROCEDURE: HISTORICAL TONSILLECTOMY OTHER SURGICAL HISTORY PROCEDURE: AR ANESTHESIA OPEN PROCEDURES LOWER 1/3 FEMUR; COMMENT: fractured, gladis in place COLONOSCOPY 06/20/12 PROCEDURE: HISTORICAL COLONOSCOPY; COMMENT: Dr Huang OTHER SURGICAL HISTORY PROCEDURE: CLASS; COMMENT: X 3 Medical History Medical History Date Comments Osteoporosis 09/18/2013 DX:Osteoporosis Yripnye-Wayog-Npwjb disease DX:C axpzsv-Nmwaq-Kdvnc disease Family History Medical History Relation Name Comments Other: charcot liana disease Brother Diabetes Father Heart attack Maternal Grandmother cancer throat Diabetes Mother Other: charcot liana tooth disease Sister 1 out of 10 siblings, 3 daignosed with CMT Lung cancer Sister 2 due to smoking Relation Name Status Comments Brother Father Maternal Grandmother Mother Sister 1 Sister 2 Social History Tobacco Use Types Packs/Day Years Used Date Smoking Tobacco: Never Smokeless Tobacco: Never Alcohol Use Standard Drinks/Week Comments No 0 (1 standard drink = 0.6 oz pur e alcohol) Comments Unknown Sex and Gender Information Value Date Recorded Sex Assigned at Not on file Legal Sex Female 12:59 AM EST Gender Identity Not on file Sexual Orientation Not on file Obstetrics History Last Filed Vital Signs Vital Sign Reading Time Taken Comments Blood Pressure 119/65 12/03/2023 9:34 AM EDT Pulse 90 12/03/2023 9:34 AM EDT Temperature - - Respiratory Rate - - Oxygen Saturation - - Inhaled Oxygen Concentration - - Weight 86.2 kg (190 lb) 12/03/2023 9:34 AM EDT Height 149.9 cm (4' 11 ) 12/03/2023 9:34 AM EDT Body Mass Index 38.38 12/03/2023 9:34 AM EDT Plan of Treatment Upcoming Encounters Date Type Department Care Team (Late st Contact Info) Description 08/13/2024 3:30 PM EDT Office Visit Adult Medicine - [place] [address] [place] [phone] Jacob Davis PA [address] [place] [address] 12/23/2024 2:30 PM EDT Office Visit Bariatric Surgery - [place] [address] [phone] Dorie Schneider MD [address] [phone] Health Maintenance Due Date Last Done Comments Cervical Cancer Screening: Pap Smear 1982 Zoster Vaccines (1 of 2) 2011 Pneumococcal Vaccine: 50+ Years (2 of 2 - PCV) 01/13/2018 01/13/2017 Colorectal Cancer Screening: Colonoscopy 02/26/2022 Depression Screening 02/26/2022 HIV Screening 02/26/2022 Osteoporosis Screening (Bone Density Screening) 02/26/2022 Social Influencers of Health Screening 02/26/2022 Medicare Annual Wellness Visit 11/17/2022 11/17/2021 COVID-19 Vaccine (3 - season) 2024 12/11/2023, 01/09/2023 DTaP,Tdap,and Td Vaccines (2 - Td or Tdap) 07/07/2024 07/07/2014 Breast Cancer Screening 10/26/2024 10/27/19, 10/24/2021, 09/10/2017 Cholesterol Screening (Lipid Panel) 12/02/2028 12/03/2023, 12/03/2023 Hepatitis C Screening Completed 09/18/2013 Pneumococcal Vaccine: Pediatrics (0 to 5 Years) and At-Risk Patients (6 to 64 Years) Aged Out 01/13/2017 No longer eligible based on patient's age to complete this topic Influenza Vaccine Completed 12/03/2023, , 01/13/2022, Additional history exists RSV Immunization Patients 60+ Years Old Completed 12/11/2023 HIB Vaccines Aged Out No longer eligi ble based on patient's age to complete this topic HPV Vaccines Aged Out No longer eligi ble based on patient's age to complete this topic Hepatitis A Vaccines Aged Out No long er eligible based on patient's age to complete this topic Hepatitis B Vaccines Aged Out No long er eligible based on patient's age to complete this topic IPV Vaccines Aged Out No longer eligi ble based on patient's age to complete this topic MMR Vaccines Aged Out No longer eligi ble based on patient's age to complete this topic Meningococcal ACWY Vaccine Aged Out N o longer eligible based on patient's age to complete this topic Meningococcal B Vacine Aged Out No lo nger eligible based on patient's age to complete this topic RSV Immunization Patients Under 20 months Aged Out No longer eligible based on patient's age to complete this topic Varicella Vaccines Aged Out No longer eligible based on patient's age to complete this topic Procedures Procedure Name Priority Date/Time Associated Diagnosis Comments LIPID PANEL Routine 12/03/2023 ELENA SCREENING DIGITAL Routine 10/26/2022 2:58 PM EDT Encounter for screening mammogram for malignant neoplasm of breast HM HEPATITIS C SCREENING Routine 09/18/2013 from Last 3 Months or Most Recently Relevant to Health Maintenance Results * (ABNORMAL) Lipid panel (12/03/2023) LDL/HDL Ratio 4 0 - 4 Triglycerides 105 0 - 150 mg/dL Cholesterol 235(A) 0 - 200 mg/dL HDL 57 >=40 mg/dL LDL Cholesterol 157(A) 0 - 100 mg/dL Blood Venous blood specimen / Unknown us Historical Provider LAB BLOOD ORDERABLES Riri l Result * ELENA SCREENING DIGITAL (10/26/2022 2:58 PM EDT) Anatomical Region Laterality Modality Mammography 10/26/2022 1:49 PM EDT Narrative 10/26/2022 2:58 PM EDT [facility] Diagnostic Imaging Department [address] [place] [address] Patient: ??EUSEBIA AGUILAR ?/Age/Sex: 1960 - 62 - F Unit#: ??[id number] ? Location/Status: ??SPDIMAM/REG CLI ? Mnemonic/Ordering Site: ??DIGSC/SPMAM Ordering Physician: ??FANY ROBERTO MD Elena Screening Digital - 10/26/22 [id number] Report Status:Signed EXAM: [facility] Screening Digital EXAM DATE AND TIME: 10/26/2022 2:43 PM HISTORY: ??Screening. COMPARISON: ??10/24/21, 09/10/17, 10/08/15 TECHNIQUE: Bilateral digital breast tomosynthesis was performed in the CC and MLO projections. Computer aided detection with [employer] 3D 3.1 was employed. TISSUE DENSITY: b. There are scattered areas of fibroglandular density. FINDINGS: The images are limited due to difficulty positioning this patient, similar to previous. No suspicious masses, grouped microcalcifications, or areas of architectural distortion are seen. Vascular calcification is present. The skin is unremarkable. IMPRESSION: Limited study. No evidence of malignancy is seen. A negative mammogram in the presence of a clinically suspicious palpable abnormality does not preclude the possibility of malignancy or alter the indications for biopsy. BI-RADS: ??Category 2: Benign RECOMMENDATION(S): 1: Routine screening mammogram BILATERAL in 1 year. Dictating Physician: ??MAR RAMOS MD Electronically Signed by: ??MAR RAMOS MD Dic Date/Time: ??10/26/22 1457 Sign date/Time: ??10/26/22 1453 Procedure Note Mar Ramos MD - 05/01/2023 [facility] Diagnostic Imaging Department [address] [place] [address] Patient: LAURENEUSEBIA.O.B./Age/Sex: 1960 - 62 - F Unit#: [id number] [facility] Ordering Physician: FAYN ROBERTO MD Elena Screening Digital - 10/26/22 - [id number] Report Status:Signed EXAM: [facility] Screening Digital EXAM DATE AND TIME: 10/26/2022 2:43 PM HISTORY: Screening. COMPARISON: 10/24/21, 09/10/17, 10/08/15 TECHNIQUE: Bilateral digital breast tomosynthesis was performed in the CCand MLO projections. Computer aided detection with Nanapi 3D 3.1was employed. TISSUE DENSITY: b. There are scattered areas of fibroglandular density. FINDINGS: The images are limited due to difficulty positioning this patient, similarto previous. No suspicious masses, grouped microcalcifications, or areas ofarchitectural distortion are seen. Vascular calcification is present. The skin is unremarkable. IMPRESSION: Limited study. No evidence of malignancy is seen. A negative mammogram in the presence of a clinically suspicious palpable abnormality does not preclude the possibility of malignancy or alter the indications for biopsy. BI-RADS: Category 2: Benign RECOMMENDATION(S): 1: Routine screening mammogram BILATERAL in 1 year. Dictating Physician: MAR RAMOS MD Electronically Signed by: MAR RAMOS MD Dic Date/Time: 10/26/22 1457 Sign date/Time: 10/26/22 1458 Fany Roberto MD IMG BI PROCEDURES Riri l Result * Hepatitis C Screening (09/18/2013) Hepatitis C Screening abstracted Historical Provider HEALTH MAINTENANCE Final Result from Last 3 Months or Most Recently Relevant to Health Maintenance Insurance MEDICAID - [place] MEDICARE Care Teams Charter Boat Operator Relationship Specialty Start Date End Date Fany Roberto MD [address] [place] [phone] PCP - General Internal Medicine 08/02/21
== END 2024-06-24 13:29 | disposition home or self-care (01) ==
LOC: HO.HPS 12:58
PROVIDERS: PCP Family Medicine; Visit Provider Hospitalist
DX: R06.02 Shortness of breath (principal); G60.0 Hereditary motor and sensory neuropathy; J98.4 Other disorders of lung; G47.33 Obstructive sleep apnea (adult) (pediatric); J96.12 Chronic respiratory failure with hypercapnia; R07.9 Chest pain, unspecified; R94.31 Abnormal electrocardiogram [ECG] [EKG]
CPT/HCPCS: 99214; G2211

== ENCOUNTER → 2024-06-24 13:48 | Outpatient (BNV) | payer MEDICARE, MEDICAID, SELFPAY | PROVIDERS: PCP Family Medicine; Visit Provider Radiology Diagnostic Radiology | DX: R07.9 Chest pain, unspecified (principal) | CPT/HCPCS: 71046 ==